=== PATIENT | male | born 1970 | race Caucasian/White ===

== ENCOUNTER 2016-05-09 13:51 | Emergency (ER) | payer MEDICAID, OTHER ==
[2016-05-09 14:00] VITALS: BP 142/85
--- NOTE | 2016-05-09 14:17 | UC ---
General HPI - HPI Summary HPI Summary: 45 y/o male c/o "the worst headache he's ever had," which developed gradually throughout the day yesterday. Headache is constant and "pounding" located across the forehead and into the temporal region. Denies any changes in vision. Reports nasal and maxillary sinus congestion which began yesterday, post-nasal drip and clearing brown-green mucus. Denies fever, cough, or GI symptoms. - History of Current Complaint Chief Complaint: UCGeneralIllness Stated Complaint: SINUS COMPLAINT Time Seen by Provider: 05/09/16 14:03 Hx Obtained From: Patient Onset/Duration: Gradual Onset - Gradually worsened since presentation yesterday Onset Severity: Moderate Current Severity: Severe Pain Intensity: 10 Pain Location at: temporal region Character: "pounding," constant Aggravating: Light Associated Signs & Symptoms: Positive: Headache. 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 Alcohol Use: None Substance Use Type: None Substance Use Comment - Amount & Last Used: none in 5 years Smoking Status (MU): Never Smoked Tobacco Have You Smoked in the Last Year: No - Immunization History Most Recent Influenza Vaccination: April 2014 Review of Systems Constitutional: Fatigue Skin: Negative Eyes: Negative ENT: Nasal Discharge Respiratory: Negative Cardiovascular: Negative Gastrointestinal: Negative Genitourinary: Negative Motor: Negative Neurovascular: Negative Musculoskeletal: Negative Neurological: Negative Psychological: Negative All Other Systems Reviewed And Are Negative: Yes Physical Exam Triage Information Reviewed: Yes Appearance: Well-Appearing, No Pain Distress, Well-Nourished Vital Signs: Initial Vital Signs Temp 98.5 F 05/09/16 13:56 Pulse 92 05/09/16 13:56 Resp 16 05/09/16 13:56 BP 142/85 05/09/16 13:56 Pulse Ox 100 05/09/16 13:56 Vital Signs Reviewed: Yes Eye Exam: Normal Eyes: Positive: Conjunctiva Clear ENT: Positive: Pharynx normal, Nasal congestion, TMs normal. Negative: Tonsillar swelling, Tonsillar exudate, Trismus Dental Exam: Normal Dental: Negative: Cervical Lymphadenopathy Neck: Positive: Supple, Nontender, No Lymphadenopathy Respiratory: Positive: Chest non-tender, Lungs clear, Normal breath sounds, No respiratory distress, No accessory muscle use Cardiovascular: Positive: RRR, No Murmur, Pulses Normal Abdomen Description: Positive: Nontender, No Organomegaly, Soft Bowel Sounds: Positive: Present Musculoskeletal: Positive: Strength Intact, ROM Intact Neurological: Positive: Alert, Muscle Tone Normal, Fatigued. Negative: Lethargic Psychological Exam: Normal Skin Exam: Normal Course/Dx - Differential Dx - Multi-Symptom Provider Diagnoses: sinusitis, likely viral. headache Discharge - Discharge Plan Condition: Stable Disposition: HOME Prescriptions: HYDROcodone/ACETAMIN 5-325 MG* [[place] 5-325 TAB*] 1 - 2 tab PO Q8HR #4 tab MDD 4 Naproxen [Naproxen 500 MG TABS] 500 mg PO BID #10 tab Patient Education Materials: Rhinosinusitis (ED) Forms: *Work Release Referrals: Grisel Beauchamp [Primary Care Provider] - If Needed Additional Instructions: You elected to not go to the Emergency Room today, you are not currently having any neurological symptoms, as discussed if this status changes and you develop any of the red flags symptoms, you will go immediately to the emergency room. As we discussed, there were no signs of a bacterial infection today. Increase water intake, increase rest to more than 9 hours daily. The mnemonic SNOOP is a reminder of the danger signs ("red flags") for the presence of serious underlying disorders that can cause acute or subacute headache : Systemic symptoms, illness, or condition (eg, fever, weight loss, cancer, , immunocompromised state including HIV) Neurologic symptoms or abnormal signs (eg, confusion, impaired alertness or consciousness, papilledema, focal neurologic symptoms or signs, meningismus, or seizures) Onset is new (particularly for age >40 years) or sudden (eg, "thunderclap") Other associated conditions or features (eg, head trauma, illicit drug use, or toxic exposure; headache awakens from sleep, is worse with Valsalva maneuvers, or is precipitated by cough, exertion, or sexual activity) Previous headache history with headache progression or change in attack frequency, severity, or clinical features Any of these findings should prompt further investigation, including brain imaging with MRI or CT. Other features suggesting a secondary headache source Other features that suggest a specific source of headache pain include the following: Impaired vision or seeing halos around light suggests the presence of glaucoma. Suspicion for subacute angle closure glaucoma should be raised by relatively short duration (often less than one hour) unilateral headaches that do not meet criteria for migraine arising after age 50. Visual field defects suggest the presence of a lesion of the optic pathway Sudden, severe, unilateral vision loss suggests the presence of optic neuritis. Blurring of vision on forward bending of the head, headaches upon waking early in the morning that improve with sitting up, and double vision or loss of coordination and balance should raise the suspicion of raised intracranial pressure; this should also be considered in patients with chronic, daily, progressively worsening headaches associated with chronic nausea.
[2016-05-09] MEDS ORDERED: Ondansetron ODT TAB* 4 MG PO ONE ×2 (14:43)
[2016-05-09] MEDS ORDERED: Ketorolac INJ* 30 MG/ML 1 ML VIAL IM ONE ×2 (14:43)
== END 2016-05-09 15:12 | disposition home or self-care (01) ==
LOC: UCCORT 13:51
DX: J32.9 Chronic sinusitis, unspecified (principal); Z85.71 Personal history of Hodgkin lymphoma; Z94.84 Stem cells transplant status; Z88.1 Allergy status to other antibiotic agents
CPT/HCPCS: 96372; 99212; A9270-GY; G0463; J1885

== ENCOUNTER 2016-07-13 20:22 | Emergency (ER) | payer MEDICAID, OTHER ==
[2016-07-13 21:08] VITALS: BP 142/78
[2016-07-13] MEDS ORDERED: HYDROcodone/ACETAMIN 5-325 MG* 1 TAB PO ONE (22:01)
[2016-07-13] MEDS ORDERED: Amoxicillin/Clavulanate TAB* 875 MG PO ONE (22:02)
--- NOTE | 2016-07-13 22:07 | UC ---
Dental HPI - HPI Summary HPI Summary: Patient has multiple infected teeth on the left upper jaw, was treated by the dentist who is now on vacation and told patient to come to . - History of Current Complaint Chief Complaint: UCDentalProblem Stated Complaint: TOOTH PAIN Time Seen by Provider: 07/13/16 21:50 Hx Obtained From: Patient Onset/Duration: Sudden Onset, Lasting Weeks Severity: Moderate Aggravating: Chewing Alleviating: Nothing Related History: Previous Dental Care on Same Tooth, Swelling - Allergies/Home Medications Allergies/Adverse Reactions: Allergies Allergy/AdvReac Type Severity Reaction Status Date / Time Sulfamethoxazole Allergy Rash Verified 07/13/16 20:58 w/Trimethoprim [From Bactrim] Home Medications: Home Medications Cephalexin CAP* [Keflex CAP*] 500 mg PO TID 07/13/16 [History Confirmed 07/13/16 ] Gabapentin CAP(*) [Neurontin 300 CAP(*)] 500 mg PO BID 07/13/16 [History Confirmed 07/13/16] PMH/Surg Hx/FS Hx/Imm Hx Previously Healthy: Yes Endocrine History Of: Reports: Thyroid Disease - Hypothyroidism Cardiovascular History Of: Reports: Hypertension GI/ History Of: Reports: Gastroesophageal Reflux Neurological History Of: Denies: Seizures, Migraine Psychological History Of: Reports: Anxiety, Depression - Surgical History Surgical History: Yes Surgery Procedure, Year, and Place: stem cell transplant 12/1998 - Family History Known Family History: Positive: Hypertension, Other - Brother 38: Throat [place]. Dad: breastCA Mom: Organ system failure - Social History Alcohol Use: None Substance Use Type: None Substance Use Comment - Amount & Last Used: none in 5 years Smoking Status (MU): Never Smoked Tobacco Have You Smoked in the Last Year: No - Immunization History Most Recent Influenza Vaccination: April 2014 Review of Systems Constitutional: Negative Skin: Negative Eyes: Negative ENT: Dental Pain, Sore Throat, Ear Ache Respiratory: Negative Cardiovascular: Negative Gastrointestinal: Negative Genitourinary: Negative Motor: Negative Neurovascular: Negative Musculoskeletal: Negative Neurological: Headache Psychological: Negative All Other Systems Reviewed And Are Negative: Yes Physical Exam Triage Information Reviewed: Yes Appearance: Well-Nourished, Ill-Appearing, Pain Distress Vital Signs: Initial Vital Signs Temp 98.6 F 07/13/16 20:48 Pulse 89 07/13/16 20:48 Resp 20 07/13/16 20:48 BP 142/78 07/13/16 20:48 Vital Signs Reviewed: Yes Eye Exam: Normal ENT: Positive: Pharyngeal erythema, Nasal congestion, Other: - left maxillary sinus pressure Dental Exam: Normal Dental: Positive: Gross Decay/Caries @, Dental Fracture @, Abscess @ - on 2nd molar of left upper jaw Neck exam: Normal Neck: Positive: Supple, Nontender, No Lymphadenopathy, Enlarged Nodes @ Respiratory Exam: Normal Respiratory: Positive: Chest non-tender, Lungs clear, Normal breath sounds Cardiovascular Exam: Normal Cardiovascular: Positive: RRR, No Murmur, Pulses Normal Abdominal Exam: Normal Abdomen Description: Positive: Nontender, No Organomegaly, Soft Bowel Sounds: Positive: Present Musculoskeletal Exam: Normal Musculoskeletal: Positive: Strength Intact, ROM Intact, No Edema Neurological Exam: Normal Neurological: Positive: Alert, Muscle Tone Normal Psychological Exam: Normal Skin Exam: Normal Dental Complaint Course/Dx - Course Course Of Treatment: hx obtained, exam performed, medication reviewed, meds given and prescribed. educated on oral hygiene - Differential Dx/Diagnosis Differential Diagnosis/Dx: Dental Abscess, Dental Caries Provider Diagnoses: dental caries. dental abcess Discharge - Discharge Plan Condition: Stable Disposition: HOME Prescriptions: Amoxicillin/Clavulanate TAB* [Augmentin TAB 875*] 875 mg PO BID #19 tab HYDROcodone/ACETAMIN 5-325 MG* [[place] 5-325 TAB*] 1 tab PO Q6H PRN #8 tab MDD 4 tabs PRN Reason: Pain Patient Education Materials: Dental Abscess (ED) Referrals: Grisel Beauchamp [Primary Care Provider] - Additional Instructions: take the medication as prescribed. Increase your fluid intake. FOllow up with your dentist.
== END 2016-07-13 22:16 | disposition home or self-care (01) ==
LOC: UCCORT 20:22
DX: K04.7 Periapical abscess without sinus (principal); K02.9 Dental caries, unspecified; E03.9 Hypothyroidism, unspecified; I10 Essential (primary) hypertension; K21.9 Gastro-esophageal reflux disease without esophagitis; F41.8 Other specified anxiety disorders; Z88.2 Allergy status to sulfonamides
CPT/HCPCS: 99212; A9270-GY; G0463

== ENCOUNTER 2018-08-01 07:52 | Emergency (ER) | payer MEDICAID, OTHER ==
[2018-08-01 08:04] VITALS: BP 165/85
--- NOTE | 2018-08-01 08:40 | UC ---
General HPI - HPI Summary HPI Summary: Concern for N/V and bloating for the past month. He went to his PCP 2 weeks ago and was dx with norovirus. NO diarrhea. Appetite fine. Normally has a BM every 3-4 days - normal stools. No black or bloody stools. No fever. Explains that he has been coughing more which makes him vomits phlegm and is always nauseated. Mostly vomits in the morning phelgm and is nauseated throughout the day. No vomiting today. Did admit to smoking K2 spike a few days ago. No cigarrettes. Hx of Hodgkins Lymphoma. Just took his BP meds about 1/2 hour ago. No abdominal pain. No urinary symptoms - History of Current Complaint Chief Complaint: UCGI Stated Complaint: NAUSEA Time Seen by Provider: 08/01/18 08:25 Pain Intensity: 6 - Allergy/Home Medications Allergies/Adverse Reactions: Allergies Allergy/AdvReac Type Severity Reaction Status Date / Time sulfamethoxazole Allergy Rash Verified 08/01/18 08:04 [From Bactrim] trimethoprim [From Bactrim] Allergy Rash Verified 08/01/18 08:04 Home Medications: Home Medications Atorvastatin* [Lipitor 40 MG*] 1 mg PO DAILY 08/01/18 [History Confirmed ] metFORMIN* [Glucophage 500 MG TAB *] 500 mg PO BID 08/01/18 [History Confirmed 08/01/18] PMH/Surg Hx/FS Hx/Imm Hx Previously Healthy: Yes Endocrine History: Dyslipidemia Cardiovascular History: Hypertension GI/ History: Gastroesophageal Reflux - Surgical History Surgical History: Yes Surgery Procedure, Year, and Place: stem cell transplant 12/1998 - Family History Known Family History: Positive: Hypertension, Other - Brother 38: Throat [place]. Dad: breastCA Mom: Organ system failure - Social History Alcohol Use: Rare Substance Use Type: None Substance Use Comment - Amount & Last Used: none in 5 years Smoking Status (MU): Never Smoked Tobacco Have You Smoked in the Last Year: No - Immunization History Most Recent Influenza Vaccination: April 2014 Review of Systems All Other Systems Reviewed And Are Negative: Yes Respiratory: Positive: Cough Gastrointestinal: Positive: Nausea, Other - bloating Physical Exam Triage Information Reviewed: Yes Appearance: Well-Appearing Vital Signs: Initial Vital Signs Temp 98.5 F 08/01/18 07:58 Pulse 58 08/01/18 07:58 Resp 18 08/01/18 07:58 BP 165/85 08/01/18 07:58 Pulse Ox 100 08/01/18 07:58 Vital Signs Reviewed: Yes ENT: Positive: Normal ENT inspection Respiratory: Positive: Other: - b/l expiratory wheezing. No increasing WOB Cardiovascular: Positive: RRR, No Murmur Abdomen Description: Positive: Soft, Other: - mild distentionl, soft, NT no rebound or gaurding Diagnostics - Radiology CXR Radiology Interpretation Completed By: Radiologist Summary of Radiographic Findings: 0.7 cm nodule over Right lower lung field Abd xray Radiology Interpretation Completed By: Radiologist Summary of Radiographic Findings: nonspecific bowel gas pattern Course/Dx - Course Course Of Treatment: This is a 47 yr old with 1 month of nausea/vomiting and bloating Assessment CXR: nodule seen ?shadow/artifact Abd Film: nonspecific Discussed screening labs today: CBC, CRP and CMP Plan You need follow up with further imaging - CT scan with contrast of possible nodule seen on CXR in left lung We will contact you if your labs are abnormal Recommend follow up with GI to discuss EGD and Colonoscopy as scheduled today Zofran 4 mg every 8 hours as needed for nausea Albuterol inhaler with spacer 2 puffs every 4 hours as needed for cough/ shortness of breath - Diagnoses Provider Diagnosis: Cough, Nausea & vomiting Discharge - Sign-Out/Discharge Documenting (check all that apply): Patient Departure All imaging exams completed and their final reports reviewed: Yes - Discharge Plan Condition: Fair Disposition: HOME Prescriptions: Albuterol HFA INHALER* [Ventolin HFA Inhaler*] 2 puff INH Q4H PRN #1 mdi PRN Reason: Cough Ondansetron ODT TAB* [Zofran 4 MG Odt TAB*] 4 mg PO Q8H PRN #20 tab.odt PRN Reason: Nausea Spacer/Holding Chamber (NF) [Easivent CHAMBER (NF)] 1 applic INH Q4HR PRN #1 device PRN Reason: Cough Referrals: Mana Subramanian PA [Primary Care Provider] - Additional Instructions: You need follow up with further imaging - CT scan with contrast of possible nodule seen on CXR in left lung We will contact you if your labs are abnormal Recommend follow up with GI to discuss EGD and Colonoscopy as scheduled today Zofran 4 mg every 8 hours as needed for nausea Albuterol inhaler with spacer 2 puffs every 4 hours as needed for cough/ shortness of breath - Billing Disposition and Condition Condition: FAIR Disposition: Home
[2018-08-01 14:38] LABS: ABS Eosinophils 0.1 10^3/ul (0-0.6); ABS Lymphocytes 1.4 10^3/ul (1.0-4.8); ABS Monocytes 0.6 10^3/ul (0-0.8); ABS Neutrophils 3.6 10^3/ul (1.5-7.7); Eosinophil % 1.2 %; Hematocrit 43 % (42-52); Hemoglobin 14.6 g/dL (14.0-18.0); Lymphocyte % 25.5 %; Mean Corpuscular HGB Conc 34 g/dL (31-36); Mean Corpuscular Hemoglobin 30 pg (27-31); Mean Corpuscular Volume 88 fL (80-94); Mean Platelet Volume 7.4 fL (7.4-10.4); Platelet Count 264 10^3/uL (150-450); Red Cell Distribution Width 12 % (10.5-15); White Blood Count 5.7 10^3/uL (3.5-10.8)
[2018-08-01 15:24] LABS: Albumin 4.9 g/dL (3.2-5.2); Potassium 4.3 mmol/L (3.5-5.0); Total Bilirubin 0.4 mg/dL (0.2-1.0)
[2018-08-01 15:30] LABS: Albumin/Globulin Ratio 1.9 (1-3); BUN/Creatinine Ratio 22.5 (8-20); C Reactive Protein 1.37 mg/L (<8.01); EGFR African American 125.4 (>60); EGFR Non-African American 103.6 (>60); Globulin 2.6 g/dL (2-4); Total Protein 7.5 g/dL (6.4-8.9)
== END 2018-08-01 09:31 | disposition home or self-care (01) ==
LOC: UCCORT 07:52
DX: R05 Cough (principal); R11.2 Nausea with vomiting, unspecified; R91.8 Other nonspecific abnormal finding of lung field; R14.0 Abdominal distension (gaseous); E78.5 Hyperlipidemia, unspecified; I10 Essential (primary) hypertension; K21.9 Gastro-esophageal reflux disease without esophagitis; Z88.2 Allergy status to sulfonamides; Z88.8 Allergy status to other drugs, medicaments and biological substances
CPT/HCPCS: 36415; 71046; 74018; 80053; 85025; 86140; 99212; G0463

== ENCOUNTER 2019-02-23 17:36 | Emergency (ER) | payer OTHER ==
[2019-02-23 18:12] VITALS: BP 116/61
[2019-02-23] MEDS ORDERED: Naproxen TAB* 250 MG PO ONE (19:25)
--- NOTE | 2019-02-23 19:29 | UC ---
Upper Extremity HPI - HPI Summary HPI Summary: 48-year-old male comes in with a chief complaint of right arm numbness. Started about 2 days ago he reports the numbness is primarily in the first second and third fingers of the right hand goes into the wrist and up to the elbow. Denies any numbness in the right fourth and fifth fingers. Has had some pain in the elbow. Denies any decreased strength. Denies any facial or leg symptoms are neck pain. Patient reports he's had similar numbness in both hands in the past but that it's always gotten better. Patient has had carotid endarterectomy on the left side for stenosis. He's also had a superficial thrombus in the right forearm. We discussed further patient reported that 2 days ago when the hand was bothering him initially he wondered if his right face and right leg were involved but he wasn't sure. He wondered if he was just stressed out and he was imagining the symptoms. - History of Current Complaint Chief Complaint: UCUpperExtremity Stated Complaint: RIGHT HAND/FOREARM/SHOULDER NUMBNESS Time Seen by Provider: 02/23/19 19:09 Pain Intensity: 0 - Allergies/Home Medications Allergies/Adverse Reactions: Allergies Allergy/AdvReac Type Severity Reaction Status Date / Time sulfamethoxazole Allergy Rash Verified 02/23/19 18:05 [From Bactrim] trimethoprim [From Bactrim] Allergy Rash Verified 02/23/19 18:05 PMH/Surg Hx/FS Hx/Imm Hx Previously Healthy: Yes - RT FOREARM SUPERFICICIAL VENOUS THROMBUS Endocrine History: Diabetes, Hypothyroidism, Dyslipidemia Cardiovascular History: Hypertension - Surgical History Surgical History: Yes Surgery Procedure, Year, and Place: stem cell transplant 12/1998. LEFT CAROTID ENDARTERECTOMY - Family History Known Family History: Positive: Hypertension, Other - Brother 38: Throat [place]. Dad: breastCA Mom: Organ system failure, Non-Contributory - Social History Alcohol Use: Occasionally Alcohol Amount: '6 day drinking binge.. was sober for 2 1/2 years before' 10/2018 Substance Use Type: Cocaine Substance Use Comment - Amount & Last Used: 09/30/18 Smoking Status (MU): Never Smoked Tobacco Have You Smoked in the Last Year: No - Immunization History Most Recent Influenza Vaccination: April 2014 Review of Systems All Other Systems Reviewed And Are Negative: Yes Constitutional: Positive: Negative Skin: Positive: Negative Eyes: Positive: Negative ENT: Positive: Negative Respiratory: Positive: Negative Cardiovascular: Positive: Negative Gastrointestinal: Positive: Negative Motor: Positive: Negative Neurovascular: Positive: Decreased Sensation Musculoskeletal: Positive: Other: - SEE HPI Neurological: Positive: Negative Psychological: Positive: Negative Is Patient Immunocompromised?: No Physical Exam Triage Information Reviewed: Yes Appearance: Well-Appearing, No Pain Distress, Well-Nourished Vital Signs: Initial Vital Signs Temp 98.4 F 02/23/19 18:06 Pulse 80 02/23/19 18:06 Resp 15 02/23/19 18:06 BP 116/61 02/23/19 18:06 Pulse Ox 98 02/23/19 18:06 Vital Signs Reviewed: Yes Eye Exam: Normal Eyes: Positive: Conjunctiva Clear Neck: Positive: Supple, Nontender Respiratory: Positive: Lungs clear, Normal breath sounds, No respiratory distress Cardiovascular: Positive: RRR Musculoskeletal: Positive: Other: - On examination 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 On palpation patient reports numbness in the first second and third fingers and on the radial aspect of the wrist. Negative Tinel's. He is non-tender above the elbow on the medial aspect of the upper arm. There was Earl area of mild tenderness on the medial aspect of the right elbow. Neck is nontender to palpation full range of motion. Neurological: Positive: Alert, Other: - No facial droop. No arm drift. Arms and legs have full range of motion full-strength. Normal speech. Normal sensation bilaterally on the face arms and legs. Psychological: Positive: Age Appropriate Behavior Skin Exam: Normal Upper Extremity Course/Dx - Course Course Of Treatment: The paresthesia is in the right radial nerve distribution. He does not have any weakness. The plan is to use a cock-up splint anti-inflammatories and follow-up with sports medicine or orthopedics. We discussed further that if the patient upon initial presentation of the right arm paresthesias see if he also did truly have any symptoms in his right face and right leg that he needed to go the emergency department now for evaluation of a stroke. On examination here he did not have any of those other symptoms. Patient preferred to take the anti-inflammatories and use the brace which he has at home rather than going to the emergency department right now. We did discuss that if he gets any symptoms in his face the rest of his arm or his leg he needs to go directly to the emergency department. Patient agreed with this. - Differential Dx/Diagnosis Provider Diagnosis: Disorder of right radial nerve, Right arm numbness Discharge ED - Sign-Out/Discharge Documenting (check all that apply): Patient Departure All imaging exams completed and their final reports reviewed: No Studies - Discharge Plan Condition: Stable Disposition: HOME Prescriptions: Naproxen [Naprosyn Enteric Coated 500 mg] 500 mg PO BID #30 tablet. Patient Education Materials: Radial Nerve Palsy (ED), Paresthesia (ED) Referrals: Mana Subramanian PA [Primary Care Provider] - Kai Dunlap MD [Medical Doctor] - [facility] [Provider Group] Additional Instructions: FOLLOW UP WITH YOUR DR DUNLAP, ORTHOPEDICS, OR SPORTS MEDICINE. WEAR YOUR WRIST SPLINT UNTIL SEEN BY ORTHOPEDICS. GO TO THE EMERGENCY DEPARTMENT IF WORSE; WEAKNESS, NUMBNESS, SIGNS OF A STROKE OR ANY QUESTIONS OR CONCERNS. - Billing Disposition and Condition Condition: STABLE Disposition: Home
== END 2019-02-23 19:33 | disposition home or self-care (01) ==
LOC: UCCORT 17:36
DX: G56.31 Lesion of radial nerve, right upper limb (principal); R20.0 Anesthesia of skin; E11.9 Type 2 diabetes mellitus without complications; I10 Essential (primary) hypertension; Z94.84 Stem cells transplant status; Z88.2 Allergy status to sulfonamides
CPT/HCPCS: 99212; A9270-GY; G0463